=== PATIENT | male | born 1945 | race Caucasian/White ===

== ENCOUNTER → 2022-01-23 | Outpatient (CLI) | payer OTHER, BC, MEDICARE | LOC: EMI 13:42 | DX: R20.0 Anesthesia of skin (principal); M51.36 Other intervertebral disc degeneration, lumbar region; M51.37 Other intervertebral disc degeneration, lumbosacral region; M47.816 Spondylosis without myelopathy or radiculopathy, lumbar region; M47.817 Spondylosis without myelopathy or radiculopathy, lumbosacral region; M48.061 Spinal stenosis, lumbar region without neurogenic claudication; M48.07 Spinal stenosis, lumbosacral region | CPT/HCPCS: 72148 ==